=== PATIENT | male | born 1990 | race Caucasian/White ===

== ENCOUNTER 2020-12-02 11:42 | Emergency (ER) | payer BC ==
[2020-12-02] MEDS ORDERED: Sodium Chloride 0.9% 1,000 ML IV STA (13:05)
--- NOTE | 2020-12-02 14:10 | EDM.PDOC ---
ED HPI GENERAL MEDICAL PROBLEM - General Chief Complaint: General Stated Complaint: POSSIBLE COVID Time Seen by Provider: 12/02/20 12:46 Source of Information: Reports: Patient, RN Notes Reviewed History Limitations: Reports: No Limitations - History of Present Illness INITIAL COMMENTS - FREE TEXT/NARRATIVE: Patient is a 30-year-old male presenting to the emergency department with complaints of a 4-day history of nausea, vomiting, diarrhea, subjective fever, and body aches. Reports that he vomits immediately after any oral consumption. Also reports recurrent diarrhea. Denies any consistent abdominal pain, but states that when he is about to have diarrhea or vomiting he does have cramping. He reports onset of mild cough yesterday but denies any shortness of breath. Denies any chest pain. He has felt warm at home but has not checked his temperature. Complains of body aches for which she has taken Tylenol. He denies any known Covid exposure and was not vaccinated for COVID-19. Generalized Pain Score (Numeric/FACES): 7 - Related Data Allergies Allergy/AdvReac Type Severity Reaction Status Date / Time No Known Allergies Allergy Verified 12/02/20 12:47 Home Meds: Home Meds Ondansetron [Zofran ODT] 4 mg PO Q6H PRN #10 tab.dis 12/02/20 [Rx] Past Medical History HEENT History: Reports: None Cardiovascular History: Reports: None Respiratory History: Reports: Asthma Genitourinary History: Reports: None Musculoskeletal History: Reports: None Psychiatric History: Reports: None Endocrine/Metabolic History: Reports: None Hematologic History: Reports: Anesthesia Reaction Immunologic History: Reports: None Oncologic (Cancer) History: Reports: None Dermatologic History: Reports: None - Past Surgical History Head Surgeries/Procedures: Reports: None HEENT Surgical History: Reports: None Cardiovascular Surgical History: Reports: None Endocrine Surgical History: Reports: None Social & Family History - Tobacco Use Tobacco Use Status *Q: Current Some Day Tobacco User Years of Tobacco use: 16 Packs/Tins Daily: 0.2 Tobacco Use Comment: 2-3 per week - Caffeine Use Caffeine Use: Reports: Coffee Caffeine Use Comment: 1 cup coffee per day and 2 energy drinks per day - Recreational Drug Use Recreational Drug Use: No ED ROS GENERAL - Review of Systems Review Of Systems: See Below Constitutional: Reports: Fever, Decreased Appetite HEENT: Reports: No Symptoms Respiratory: Reports: Cough. Denies: Shortness of Breath, Wheezing, Pleuritic Chest Pain Cardiovascular: Denies: Chest Pain, Dyspnea on Exertion, Syncope Endocrine: Reports: No Symptoms GI/Abdominal: Reports: Abdominal Pain (intermittent), Diarrhea, Nausea, Vomiting : Reports: No Symptoms Musculoskeletal: Reports: Other (generalized body aches) Skin: Reports: No Symptoms Neurological: Reports: No Symptoms Psychiatric: Reports: No Symptoms Hematologic/Lymphatic: Reports: No Symptoms Immunologic: Reports: No Symptoms ED EXAM, GENERAL - Physical Exam Exam: See Below Exam Limited By: No Limitations General Appearance: Alert, WD/WN, No Apparent Distress Respiratory/Chest: No Respiratory Distress, Lungs Clear, Normal Breath Sounds, No Accessory Muscle Use, Chest Non-Tender Cardiovascular: Normal Peripheral Pulses, Regular Rate, Rhythm, No Edema, No Gallop, No JVD, No Murmur, No Rub GI/Abdominal: Normal Bowel Sounds, Soft, Non-Tender, No Organomegaly, No Distention, No Abnormal Bruit, No Mass Neurological: Alert, Oriented, CN II-XII Intact, Normal Cognition, Normal Gait, Normal Reflexes, No Motor/Sensory Deficits Psychiatric: Normal Affect, Normal Mood Skin Exam: Warm, Dry, Intact, Normal Color, No Rash Course - Vital Signs Last Recorded V/S: Last Vital Signs Temp 98.2 F 12/02/20 12:43 Pulse 81 12/02/20 12:43 Resp 18 12/02/20 12:43 BP 125/77 12/02/20 12:43 Pulse Ox 97 12/02/20 12:43 - Orders/Labs/Meds Labs: Laboratory Tests 12/02/20 12/02/20 12/02/20 Range/Units 13:00 14:09 14:09 WBC 3.09 L (4.23-9.07) K/mm3 RBC 5.22 (4.63-6.08) M/mm3 Hgb 14.9 (13.7-17.5) gm/dl Hct 43.6 (40.1-51.0) % MCV 83.5 (79.0-92.2) fl MCH 28.5 (25.7-32.2) pg MCHC 34.2 (32.2-35.5) g/dl RDW Std Deviation 38.8 (35.1-43.9) fL Plt Count 139 L (163-337) K/mm3 MPV 10.7 (9.4-12.3) fl Neut % (Auto) 65.4 (34.0-67.9) % Lymph % (Auto) 27.8 (21.8-53.1) % [place] % (Auto) 6.5 (5.3-12.2) % Eos % (Auto) 0 L (0.8-7.0) Baso % (Auto) 0.3 (0.1-1.2) % Neut # (Auto) 2.02 (1.78-5.38) K/mm3 Lymph # (Auto) 0.86 L (1.32-3.57) K/mm3 [place] # (Auto) 0.20 L (0.30-0.82) K/mm3 Eos # (Auto) 0.00 L (0.04-0.54) K/mm3 Baso # (Auto) 0.01 (0.01-0.08) K/mm3 Sodium 132 L (136-145) mEq/L Potassium 3.5 (3.5-5.1) mEq/L Chloride 98 (98-107) mEq/L Carbon Dioxide 26 (21-32) mEq/L Anion Gap 11.5 (5-15) BUN 11 (7-18) mg/dL Creatinine 1.3 (0.7-1.3) mg/dL Est Cr Clr Drug Dosing 97.48 mL/min Estimated GFR (MDRD) > 60 (>60) mL/min BUN/Creatinine Ratio 8.5 L (14-18) Glucose 95 (70-99) mg/dL Calcium 7.9 L (8.5-10.1) mg/dL Total Bilirubin 0.3 (0.2-1.0) mg/dL AST 39 H (15-37) U/L ALT 34 (16-63) U/L Alkaline Phosphatase 66 (46-116) U/L Total Protein 7.6 (6.4-8.2) g/dl Albumin 3.5 (3.4-5.0) g/dl Globulin 4.1 gm/dL Albumin/Globulin Ratio 0.9 L (1-2) SARS-CoV-2 RNA (SOPHIE) Positive H (NEGATIVE) Meds: Medications Discontinued Medications Generic Name Dose Route Start Last Admin Trade Name Freq PRN Reason Stop Dose Admin Sodium Chloride 1,000 mls @ 999 mls/hr 12/02/20 13:05 12/02/20 14:06 Normal Saline IV 12/02/20 14:05 150 mls/hr NOW STA Administration - Re-Assessments/Exams Free Text/Narrative Re-Assessment/Exam: Patient is a 30-year-old male presenting to the emergency department with complaints of nausea, vomiting, diarrhea, fever, body aches as well as onset of mild cough. Exam is unremarkable. He has no abdominal tenderness. Lung sounds are clear. Oxygen is 97% on room air. Other vital signs are normal. I ordered lab work, Covid test, and a 1 L bolus of normal saline. He denies any nausea at this time. 12/02/20 15:11 Patient's Covid is positive. Blood work is otherwise unremarkable. IV fluids were inadvertently ordered 850 mils per hour. I have turned them up to 999. Once these are complete, we will discharge him home with a prescription for Zofran. Recommend Tylenol and ibuprofen. Discharge instructions as documented. Departure - Departure Time of Disposition: 15:11 Disposition: Home, Self-Care 01 Condition: Good Clinical Impression: COVID-19, Nausea vomiting and diarrhea - Discharge Information *PRESCRIPTION DRUG MONITORING PROGRAM REVIEWED*: No *COPY OF PRESCRIPTION DRUG MONITORING REPORT IN PATIENT ANGELINE: No Prescriptions: Ondansetron [Zofran ODT] 4 mg PO Q6H PRN #10 tab.dis PRN Reason: Nausea/Vomiting Instructions: Nausea and Vomiting, Adult, [id number], COVID-19 Referrals: PCP,None [Primary Care Provider] - Forms: ED Department Discharge Additional Instructions: You were seen in the emergency department today for body aches, nausea, vomiting, diarrhea. Blood work and Covid test were completed. Covid test was found to be positive. Blood work was otherwise normal. While in the ER, you received a liter of IV fluids. Prescription for Zofran for nausea has been sent to your pharmacy. Use this as prescribed. Recommend clear liquid diet for the next 24 to 72 hours then slowly advance as tolerated. You should experience any new or worsening symptoms, please do not hesitate to return to the emergency department for reevaluation Sepsis Event Note (ED) - Evaluation Sepsis Screening Result: No Definite Risk - Focused Exam Vital Signs: Vital Signs Temp Pulse Resp BP Pulse Ox 12/02/20 12:43 98.2 F 81 18 125/77 97
== END 2020-12-02 14:21 | disposition home or self-care (01) ==
LOC: JD.ED 11:42
DX: U07.1 COVID-19 (principal); R11.2 Nausea with vomiting, unspecified; R19.7 Diarrhea, unspecified; Z72.0 Tobacco use
CPT/HCPCS: 36415; 80053; 85025; 87635; 99284; J7030; 99283; U0002